=== PATIENT | female | born 1970 | race American Indian/Alaskan Native ===

== ENCOUNTER 2016-11-16 19:41 | Emergency (ER) | payer OTHER ==
[2016-11-17 00:23] LABS: Basophils % (Auto) 0.6 % (0.0-1.8); Eosinophils % (Auto) 4.8 % (0.0-4.3); Hematocrit 48.9 % (30.3-42.9); Hemoglobin 15.9 gm/dl (10.1-14.3); Mean Corpuscular HGB Conc 33 % (30-34); Mean Corpuscular Hemoglobin 31 pg (28-32); Mean Corpuscular Volume 94 fl (79-97); Platelet Count 357 K/mm3 (140-440); Red Blood Count 5.23 M/mm3 (3.65-5.03); Red Cell Distribution Width 12.9 % (13.2-15.2); White Blood Count 8.3 K/mm3 (4.5-11.0)
[2016-11-17 00:43] LABS: Anion Gap 18 mmol/L; BUN/Creatinine Ratio 18.33; Blood Urea Nitrogen 11 mg/dL (7-17); Calcium 9.4 mg/dL (8.4-10.2); Carbon Dioxide 27 mmol/L (22-30); Chloride 102.5 mmol/L (98-107); Glucose 93 mg/dL (65-100); Potassium 4.6 mmol/L (3.6-5.0); Sodium 143 mmol/L (137-145)
[2016-11-17 02:50] LABS: Bilirubin,Urine NEG (Negative); Blood,Urine MOD (Negative); Ketones,Urine NEG (Negative); Leukocyte Esterase,Urine NEG (Negative); Mucus,Urine 2+ /HPF; Nitrite,Urine NEG (Negative); Urobilinogen,Urine < 2.0 mg/dL (<2.0)
--- NOTE | 2016-11-17 04:42 | Emergency Department Report ---
HPI - General Chief Complaint: Dizziness Time Seen by Provider: 11/17/16 04:40 - HPI HPI: Patient is 46-year-old female with uncontrolled hypertension presents to the ED stating she passed out earlier today. Patient states she was at the movies and she went to the restroom after using the restroom she was walking to wash her hands when she felt lightheaded and next thing she knows she saw a couple of people surrounding her in the bathroom. Patient states she did not hit her head. EMS was called and she was brought in. Patient states she has not taken her blood pressure medication about a month because she has been out. Patient states she has a history of spinal stenosis and is currently taking tramadol. Patient states her pain doctor Dr. Henri worrell of [facility] started her on butrans patch for pain. Patient states this is her second week on the patch. Patient denies any fever/chills/nausea/vomiting/abdominal pain/chest pain/ shortness of breath/dizziness at the moment/headache ED Past Medical Hx - Past Medical History Previous Medical History?: Yes Hx Hypertension: Yes Additional medical history: pancreatitis,scoliosis - Surgical History Past Surgical History?: Yes Additional Surgical History: ,tonsillectomy - Social History Smoking Status: Former Smoker Substance Use Type: None ED Review of Systems ROS: Stated complaint: DIZZY Other details as noted in HPI Constitutional: denies: chills, diaphoresis, fever, weakness Eyes: denies: eye pain, eye discharge, vision change ENT: denies: ear pain, throat pain, dental pain, hearing loss, epistaxis Respiratory: denies: cough, shortness of breath, SOB at rest, wheezing Cardiovascular: denies: chest pain, palpitations, edema Endocrine: no symptoms reported. denies: excessive sweating, flushing, intolerance to cold Gastrointestinal: denies: abdominal pain, nausea, vomiting, diarrhea, constipation, hematemesis, melena Genitourinary: denies: urgency, dysuria, frequency, hematuria, discharge, abnormal menses, dyspareunia Musculoskeletal: denies: back pain, joint swelling, arthralgia, myalgia Skin: denies: rash, lesions Neurological: denies: headache, weakness, paresthesias Psychiatric: denies: anxiety, depression Hematological/Lymphatic: denies: easy bleeding, easy bruising Physical Exam - Physical Exam Vital Signs: Vital Signs 11/16/16 11/16/16 11/17/16 22:05 23:58 04:08 Temperature 98.6 F 98.6 F Pulse Rate 87 87 76 Respiratory 18 18 Rate Blood Pressure 158/102 Blood Pressure 158/102 156/95 [Left] O2 Sat by Pulse 97 97 98 Oximetry ED Course Vital Signs 11/16/16 11/16/16 11/17/16 22:05 23:58 04:08 Temperature 98.6 F 98.6 F Pulse Rate 87 87 76 Respiratory 18 18 Rate Blood Pressure 158/102 Blood Pressure 158/102 156/95 [Left] O2 Sat by Pulse 97 97 98 Oximetry ED Medical Decision Making - Lab Data Result diagrams: 11/17/16 00:11 11/17/16 00:11 Critical care attestation.: If time is entered above; I have spent that time in minutes in the direct care of this critically ill patient, excluding procedure time. ED Disposition Condition: Stable Referrals: PRIMARY CAREMD [Primary Care Provider] - 3-5 Days
--- NOTE | 2016-11-17 04:51 | Cat Scan Report ---
FINAL REPORT PROCEDURE: CT HEAD/BRAIN WO CON TECHNIQUE: Computerized tomography of the head was performed without contrast material. HISTORY: syncope COMPARISON: No prior studies are available for comparison. FINDINGS: Skull and scalp: Normal. Paranasal sinuses: Normal. Ventricles and subarachnoid spaces: Normal. Cerebrum: No evidence of hemorrhage, acute infarction or mass . Cerebellum and brainstem: No evidence of hemorrhage, acute infarction or mass. Vasculature: Normal. Comments: None. IMPRESSION: There is no evidence of an acute intracranial process
--- NOTE | 2016-11-17 05:15 | Emergency Department Report ---
ED Syncope HPI - General Chief Complaint: Dizziness Stated Complaint: DIZZY - History of Present Illness Initial Comments: Patient is 46-year-old female with uncontrolled hypertension presents to the ED stating she passed out earlier today. Patient states she was at the movies and she went to the restroom after using the restroom she was walking to wash her hands when she felt lightheaded and next thing she knew she saw a couple of people surrounding her in the bathroom. Patient states she did not hit her head. EMS was called and she was brought in. Patient states she has not taken her blood pressure medication about a month because she has been out. Patient states she has a history of spinal stenosis and is currently taking tramadol. Patient states her pain doctor Dr. Álvarez out of [facility] started her on butrans patch for pain. Patient states this is her second week on the patch. Patient states she would also like a refill of her blood pressure medication. She admits normal eating and drinking fluids today. Patient denies any fever/chills/nausea/vomiting/abdominal pain/chest pain/ shortness of breath/dizziness at the moment/headache Timing/Prior Episodes: no prior history, single episode today Precipitating Factors: Positive: lightheadedness Current Symptoms: back to normal - Related Data Allergies/Adverse Reactions: Allergies No Known Allergies Allergy (Verified 11/16/16 22:05) Home Medications: Ambulatory Orders Lisinopril/Hydrochlorothiazide [Zestoretic 20-12.5 mg] 1 tab PO QDAY #50 tab ED Review of Systems ROS: Stated complaint: DIZZY Other details as noted in HPI Constitutional: denies: chills, diaphoresis, fever, weakness Eyes: denies: eye pain, eye discharge, vision change ENT: denies: ear pain, throat pain, dental pain, hearing loss, epistaxis Respiratory: denies: cough, shortness of breath, SOB at rest, wheezing Cardiovascular: denies: chest pain, palpitations, edema Endocrine: no symptoms reported. denies: excessive sweating, flushing, intolerance to cold Gastrointestinal: denies: abdominal pain, nausea, vomiting, diarrhea, constipation, hematemesis, melena Genitourinary: denies: urgency, dysuria, frequency, hematuria, discharge, abnormal menses, dyspareunia Musculoskeletal: denies: back pain, joint swelling, arthralgia, myalgia Skin: denies: rash, lesions Neurological: denies: headache, weakness, paresthesias Psychiatric: denies: anxiety, depression Hematological/Lymphatic: denies: easy bleeding, easy bruising ED Past Medical Hx - Past Medical History Previous Medical History?: Yes Hx Hypertension: Yes Additional medical history: pancreatitis,scoliosis - Surgical History Past Surgical History?: Yes Additional Surgical History: ,tonsillectomy - Social History Smoking Status: Former Smoker Substance Use Type: None - Medications Home Medications: Home Medications Medication Instructions Recorded Confirmed Last Taken Type Lisinopril/Hydrochlorothiazide 1 tab PO QDAY #50 tab 11/17/16 Unknown Rx [Zestoretic 20-12.5 mg] ED Physical Exam - General Limitations: No Limitations General appearance: alert, in no apparent distress - Head Head exam: Present: atraumatic, normocephalic - Eye Eye exam: Present: normal appearance, PERRL, EOMI Pupils: Present: normal accommodation - ENT ENT exam: Present: normal exam, mucous membranes moist - Neck Neck exam: Present: normal inspection, full ROM. Absent: tenderness, meningismus, lymphadenopathy, thyromegaly - Respiratory Respiratory exam: Present: normal lung sounds bilaterally. Absent: respiratory distress, wheezes, rhonchi, stridor - Cardiovascular Cardiovascular Exam: Present: regular rate, normal rhythm. Absent: systolic murmur, diastolic murmur, rubs, gallop - Expanded Cardiovascular Exam Expanded Peripheral pulses: 2+: Carotid (R), Carotid (L), Radial (R), Radial (L), Dorsalis Pedis (R), Dorsalis Pedis (L) - GI/Abdominal GI/Abdominal exam: Present: soft, normal bowel sounds. Absent: distended, tenderness, guarding, rebound, rigid, mass, pulsatile mass - Extremities Exam Extremities exam: Present: normal inspection, full ROM, normal capillary refill. Absent: tenderness, pedal edema, joint swelling - Back Exam Back exam: Present: normal inspection, full ROM. Absent: tenderness, CVA tenderness (R), CVA tenderness (L) - Neurological Exam Neurological exam: Present: alert, oriented X3, CN II-XII intact, normal gait, reflexes normal. Absent: motor sensory deficit - Expanded Neurological Exam Expanded Neurological exam: Absent: ataxia, receptive aphasia, expressive aphasia, total aphasia, tremor Speech: Present: fluid speech Cranial nerves: EOM's Intact: Normal, Facial Sensation: Normal Cerebellar function: Finger to Nose: Normal Sensory exam: Upper Extremity Light Touch: Normal, Lower Extremity Light Touch: Normal Motor strength exam: RUE: 5, LUE: 5, RLE: 5, LLE: 5 DTR: knee (R): 2+, knee (L): 2+ Best Eye Response ([place]): (4) open spontaneously Best Motor Response ([place]): (6) obeys commands Best Verbal Response ([place]): (5) oriented [place] Total: 15 - Psychiatric Psychiatric exam: Present: normal affect, normal mood - Skin Skin exam: Present: warm, dry, intact, normal color. Absent: rash ED Course Vital Signs 11/16/16 11/16/16 11/17/16 22:05 23:58 04:08 Temperature 98.6 F 98.6 F Pulse Rate 87 87 76 Respiratory 18 18 Rate Blood Pressure 158/102 Blood Pressure 158/102 156/95 [Left] O2 Sat by Pulse 97 97 98 Oximetry 11/17/16 06:19 Temperature Pulse Rate 74 Respiratory Rate Blood Pressure 158/96 Blood Pressure [Left] O2 Sat by Pulse Oximetry ED Medical Decision Making - Lab Data Result diagrams: 11/17/16 00:11 11/17/16 00:11 Laboratory Results - last 24 hr 11/16/16 11/17/16 11/17/16 22:17 00:11 00:11 WBC 8.3 RBC 5.23 H Hgb 15.9 H Hct 48.9 H MCV 94 MCH 31 MCHC 33 RDW 12.9 L Plt Count 357 Lymph % (Auto) 47.7 H [place] % (Auto) 7.0 Eos % (Auto) 4.8 H Baso % (Auto) 0.6 Lymph # 4.0 [place] # 0.6 Eos # 0.4 Baso # 0.1 Seg Neutrophils % 39.9 L Seg Neutrophils # 3.3 Sodium 143 Potassium 4.6 Chloride 102.5 Carbon Dioxide 27 Anion Gap 18 BUN 11 Creatinine 0.6 L Estimated GFR > 60 BUN/Creatinine Ratio 18.33 Glucose 93 POC Glucose 103 Calcium 9.4 Troponin T < 0.010 Urine Color Urine Turbidity Urine pH Ur Specific [place] Urine Protein Urine Glucose (UA) Urine Ketones Urine Blood Urine Nitrite Urine Bilirubin Urine Urobilinogen Ur Leukocyte Esterase Urine WBC (Auto) Urine RBC (Auto) U Epithel Cells (Auto) Urine Mucus Urine HCG, Qual 11/17/16 11/17/16 02:24 03:43 WBC RBC Hgb Hct MCV MCH MCHC RDW Plt Count Lymph % (Auto) [place] % (Auto) Eos % (Auto) Baso % (Auto) Lymph # [place] # Eos # Baso # Seg Neutrophils % Seg Neutrophils # Sodium Potassium Chloride Carbon Dioxide Anion Gap BUN Creatinine Estimated GFR BUN/Creatinine Ratio Glucose POC Glucose Calcium Troponin T < 0.010 Urine Color Yellow Urine Turbidity Clear Urine pH 5.0 Ur Specific [place] 1.020 Urine Protein 30 mg/dl Urine Glucose (UA) Neg Urine Ketones Neg Urine Blood Mod Urine Nitrite Neg Urine Bilirubin Neg Urine Urobilinogen < 2.0 Ur Leukocyte Esterase Neg Urine WBC (Auto) 1.0 Urine RBC (Auto) 4.0 U Epithel Cells (Auto) 1.0 Urine Mucus 2+ Urine HCG, Qual Negative - EKG Data EKG shows normal: sinus rhythm Rate: normal - EKG Data Interpretation: other (right atrial enlargement, nonspecific T-wave abnormality) - Medical Decision Making 46-year-old female presents with syncopal episode. ED course: Patient is in no acute or respiratory distress. Vital signs stable. Patient reports feeling better and is in no pain. CBC: Within normal limits CMP:within normal limits Urinalysis and UPT: Negative EKG: See above Head CT: No evidence of acute intracranial process Discussed with patient lab findings -see above Patient is a low risk due to Gray syncopy rule. Patient has no history of congestive heart failure, hematocrit greater than 30, EKG within normal limits, denies shortness of breath and systolic pressure greater than 90. Orthostatic blood pressure: Normal One dose of lisinopril 20/HCTZ 12.5 given in ED prior to discharge. Patient states she understands and will comply to follow-up. Discussed with patient if she has some nonspecific episodes return to ED. Critical care attestation.: If time is entered above; I have spent that time in minutes in the direct care of this critically ill patient, excluding procedure time. ED Disposition Clinical Impression: Episode of syncope Qualifiers: Syncope type: unspecified Qualified Code(s): R55 - Syncope and collapse Disposition: DISCHARGED TO HOME OR SELFCARE Is pt being admited?: No Does the pt Need Aspirin: No Condition: Stable Instructions: Syncope (ED), Lightheadedness (ED), Dizziness (ED) Additional Instructions: Follow-up with seat joiner for mildly abnormal EKG results Take your blood pressure medication daily. Prescriptions: Lisinopril/Hydrochlorothiazide [Zestoretic 20-12.5 mg] 1 tab PO QDAY #50 tab Referrals: PRIMARY CARE, [Primary Care Provider] - 3-5 Days FLOYD MERIDA MD [Staff Physician] - 3-5 Days RADHA ALLEN MD [Staff Physician] - 3-5 Days RAZ MATTHEWS MD [Staff Physician] - 3-5 Days AGNES LAWSON MD [Staff Physician] - 3-5 Days Forms: Accompanied Note, Work/School Release Form(ED) Time of Disposition: 05:40
[2016-11-17] MEDS ORDERED: HCTZ PO ONE (05:41)
[2016-11-17] MEDS ORDERED: ZESTRIL PO ONE (05:41)
[2016-11-17 06:20] VITALS: BP 158/96
== END 2016-11-17 06:20 | disposition home or self-care (01) ==
LOC: ED 19:41
DX: R55 Syncope and collapse (principal); R42 Dizziness and giddiness; I10 Essential (primary) hypertension; Z87.891 Personal history of nicotine dependence
CPT/HCPCS: 36415; 70450; 80048; 81001; 81025; 82962; 84484; 85025; 93005; 93010